=== PATIENT | female | born 1990 | race American Indian/Alaskan Native ===

== ENCOUNTER 2019-02-16 04:32 | Outpatient (CLI) | payer OTHER ==
[2019-02-16] MEDS ORDERED: LACTATED RINGERS 1,000 ML IV ONE (06:14)
[2019-02-16] MEDS ORDERED: OXYTOCIN 10 UNIT/1 ML INJ ONE (08:21)
== END 2019-02-16 07:50 | disposition home or self-care (01) ==
LOC: TRG 04:32
PROVIDERS: ATTEND Obstetrics & Gynecology
DX: O26.893 Other specified pregnancy related conditions, third trimester (principal); R10.9 Unspecified abdominal pain; M54.9 Dorsalgia, unspecified; O47.03 False labor before 37 completed weeks of gestation, third trimester; O13.3 Gestational [pregnancy-induced] hypertension without significant proteinuria, third trimester; Z3A.29 29 weeks gestation of pregnancy
CPT/HCPCS: 96360; J7120; J2590

== ENCOUNTER 2019-03-25 10:43 | Outpatient (CLI) | payer OTHER ==
[2019-03-25] MEDS ORDERED: LACTATED RINGERS 1,000 ML IV SCH (12:00)
[2019-03-25 12:23] LABS: Alanine Aminotransferase 10 units/L (7-56)
[2019-03-25 12:36] LABS: Hematocrit 31.5 % (30.3-42.9); Hemoglobin 10.4 gm/dl (10.1-14.3); Mean Corpuscular HGB Conc 33 % (30-34); Mean Corpuscular Volume 80 fl (79-97); Platelet Count 144 K/mm3 (140-440); Red Blood Count 3.95 M/mm3 (3.65-5.03)
[2019-03-25 12:53] LABS: Bilirubin,Urine Negative (Negative); Color,Urine Straw (Yellow)
[2019-03-25 12:54] LABS: Blood,Urine Negative (Negative); Protein,Urine <15 mg/dL mg/dL (Negative)
[2019-03-25] MEDS ORDERED: ONDANSETRON 4 MG/2 ML INJ IV SCH (13:04)
[2019-03-25] MEDS ORDERED: ACETAMINOPHEN 500 MG TAB ONE (13:15)
[2019-03-25] MEDS ORDERED: ACETAMINOPHEN 500 MG TAB PO SCH (13:20)
[2019-03-25 13:27] VITALS: BP 112/60
== END 2019-03-25 14:07 | disposition home or self-care (01) ==
LOC: TRG 10:43
PROVIDERS: ATTEND Obstetrics & Gynecology
DX: O21.2 Late vomiting of pregnancy (principal); O47.03 False labor before 37 completed weeks of gestation, third trimester; O26.893 Other specified pregnancy related conditions, third trimester; R51 Headache; O13.3 Gestational [pregnancy-induced] hypertension without significant proteinuria, third trimester; Z3A.35 35 weeks gestation of pregnancy; Z90.49 Acquired absence of other specified parts of digestive tract
CPT/HCPCS: 36415; 59025; 81001; 82565; 83615; 84450; 84460; 84550; 85027; 96361; 96365; J2405; J7120; 96360

== ENCOUNTER 2019-04-13 04:04 | Inpatient (IN) | payer OTHER ==
[2019-04-13] MEDS ORDERED: AMPICILLIN/NS 2 GM/100 ML 2 GM/100 ML BAG IV ONE (05:02)
[2019-04-13] MEDS ORDERED: TERBUTALINE 1 MG/1 ML INJ SUB-Q PRN (05:02)
[2019-04-13] MEDS ORDERED: fentaNYL 100 MCG/2 ML INJ IV PRN (05:02)
[2019-04-13] MEDS ORDERED: ePHEDrine SULFATE 50 MG/1 ML INJ IV PRN ×2 (05:02→16:01)
[2019-04-13] MEDS ORDERED: LIDOCAINE (2%) 20 MG/1 ML VIAL 20 ML MDV INFILTRATI ONE (05:02)
--- NOTE | 2019-04-13 05:17 | History and Physical Report ---
History of Present Illness Date of examination: 04/13/19 Date of admission: 04/13/19 04:32 Chief complaint: Contractions and leaking of water. History of present illness: 28 year old presents to L&D with complaint of contractions and leaking of water from vagina since about 9:00 PM last night. Patient denies vaginal bleeding. Patient reports fetus is moving actively. Patient states she receives care at [facility] but no records are available. Attempted to access records via computer but was unable to do so. LMP 03/21/18. EDC 04/29/2019 per patient report. 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 labs are not available. labs have been drawn upon admission. 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 denies: chlamydia, gonorrhea, hepatitis B, hepatitis C , HIV, syphilis, trichomonas Family/Genetic History: diabetes, hypertension, other (stroke, bipolar disorder, TIA) Social history: lives with family, full code. denies: smoking, alcohol abuse, prescription drug abuse, IV drug use - Obstetrical History Expected Date of Delivery: 04/29/19 Actual Gestation: 37 Week(s) 5 Day(s) : 4 Para: 2 Hx # Term Pregnancies: 1 Number of Pregnancies: 1 Spontaneous Abortions: 1 Induced : 0 Number of Living Children: 2 Medications and Allergies Allergies Allergy/AdvReac Type Severity Reaction Status Date / Time ziprasidone [From [place]] Allergy Severe Anaphylaxis Verified 03/25/19 11:13 Home Medications Medication Instructions Recorded Confirmed Last Taken Type ALPRAZolam [Xanax] 0.5 mg PO TID PRN 03/11/13 12/10/14 03/12/13 History Ibuprofen [Motrin 600 MG tab] 600 mg PO Q8H PRN #30 tablet 02/02/18 Unknown Rx Active Meds: Active Medications Ephedrine Sulfate (Ephedrine Sulfate) 10 mg IV Q2M PRN PRN Reason: Hypotension Fentanyl (Sublimaze) 100 mcg IV Q2H PRN PRN Reason: Labor Pain Oxytocin/Sodium Chloride (Pitocin/Ns 20 Unit/1000ml Drip) 20 units in 1,000 mls @ 125 mls/hr IV DIRECT TAYLOR Oxytocin/Sodium Chloride (Pitocin/Ns 30 Unit/500ml) 30 units in 500 mls @ 0 mls/hr IV TITR TAYLOR; Protocol Lactated Ringer's (Lactated Ringers) 1,000 mls @ 125 mls/hr IV DIRECT TAYLOR Ampicillin Sodium (Ampicillin/Ns 2 Gm/100 Ml) 2 gm in 100 mls @ 100 mls/hr IV ONCE ONE; Protocol Stop: 04/13/19 06:01 Ampicillin Sodium (Ampicillin/Ns 1 Gm/50 Ml) 1 gm in 50 mls @ 100 mls/hr IV Q4HR TAYLOR; Protocol Terbutaline Sulfate (Brethine) 0.25 mg SUB-Q ONCE PRN PRN Reason: Hyperstimulation/Hypertonicity Review of Systems All systems: negative (contractions and leaking of water from vagina) - Vital Signs Vital signs: Vital Signs Pulse BP 85 127/79 04/13/19 04:23 04/13/19 04:23 Temp Pulse Resp BP Pulse Ox 85 127/79 04/13/19 04:23 04/13/19 04:23 - Physical Exam Abdomen: Positive: normal appearance, soft. Negative: distention, tenderness, guarding, rigidity Genitourinary (Female): Positive: normal external genitalia, normal perenium. Negative: perineal/vulvar lesions (no lesions noted on careful exam with bright light upon admission) Vagina: Positive: other (clear fluid pooling from vagina; positive nitrazine) Uterus: Positive: enlarged. Negative: tender Anus/Rectum: Positive: normal perianal skin Extremities: Positive: normal. Negative: tenderness, edema - Obstetrical FHR: category 1 Uterine Contraction Monitor Mode: External Cervical Dilatation: 2.5 Cervical Effacement Percentage: 40 station: -4 Uterine Contraction Pattern: Irregular Uterine Contraction Intensity: Mild Results Result Diagrams: 04/13/19 04:53 All other labs normal. Assessment and Plan A: at 37 weeks, 5 days gestation. Spontaneous rupture of membranes. Early labor. GBS unknown. No records available. + HSV 2 serology. P: Admit. EFM. Request records. Draw labs. GBS prophylaxis. Pitocin augmentation of labor. Discussed with patient risks and benefits of Pitocin augmentation of labor. Patient consented to Pitocin augmentation of labor. Continue Valtrex suppression of HSV.
[2019-04-13 05:27] LABS: Hematocrit 35.2 % (30.3-42.9); Hemoglobin 11.8 gm/dl (10.1-14.3); Mean Corpuscular HGB Conc 33 % (30-34); Mean Corpuscular Volume 80 fl (79-97); Platelet Count 153 K/mm3 (140-440); Red Blood Count 4.42 M/mm3 (3.65-5.03); Red Cell Distribution Width 15.9 % (13.2-15.2)
[2019-04-13] MEDS: LACTATED RINGERS 1,000 ML IV SCH ×2 (05:27→21:10)
[2019-04-13] MEDS ORDERED: OXYTOCIN 20 UNIT/1000ML DRIP 20 UNITS/1,000 ML BAG IV SCH (06:00)
[2019-04-13] MEDS ORDERED: OXYTOCIN DRIP 30 UNITS/500 ML BAG IV SCH (06:00)
[2019-04-13] MEDS ORDERED: PETROLATUM,WHITE 30 GM OINT TP ONE (09:10)
[2019-04-13] MEDS: valACYclovir 500 MG TAB PO SCH ×3 (09:35→22:03)
[2019-04-13] MEDS: AMPICILLIN/NS 1 GM/50 ML 1 GM/50 ML BAG IV SCH ×4 (09:36→22:04)
[2019-04-13 11:10] LABS: Hepatitis C Virus Antibody Non-Reactive (NonReactive)
[2019-04-13] MEDS ORDERED: NALOXONE 2 MG/2 ML INJ IV PRN (16:01)
--- NOTE | 2019-04-13 16:04 | Anesthesia Consultation ---
Anesthesia Consult and Med Hx Date of service: 04/13/19 - Airway Anesthetic Teeth Evaluation: Poor ROM Head & Neck: Adequate Mental/Hyoid Distance: Adequate Mallampati Class: Class II Intubation Access Assessment: Probably Good - Pulmonary Exam CTA: Yes - Cardiac Exam Cardiac Exam: RRR - Pre-Operative Health Status ASA Pre-Surgery Classification: ASA3 Proposed Anesthetic Plan: Epidural - Pre-Anesthesia Comment Pre-Anesthesia Comments: PSH: CHOLECYSTECTOMY. NO ANESTHESIA COMPLACATIONS - Pulmonary Hx Smoking: No Hx Asthma: No Hx Respiratory Symptoms: No SOB: No COPD: No Home Oxygen Therapy: No Hx Pneumonia: No Hx Sleep Apnea: No - Cardiovascular System Hx Hypertension: No Hx Coronary Artery Disease: No Hx Heart Attack/AMI: No Hx Angina: No Hx Percutaneous Transluminal Coronary Angioplasty (PTCA): No Hx Cardia Arrhythmia: No Hx Pacemaker: No Hx Internal Defibrillator: No Hx Valvular Heart Disease: No Hx Heart Murmur: No Hx Peripheral Vascular Disease: No - Central Nervous System Hx Neuromuscular Disorder: No Hx Seizures: No CVA: No Hx Back Pain: Yes Hx Psychiatric Problems: No (BIPOLAR) - Gastrointestinal Hx Ulcer: No Hx Gastroesophageal Reflux Disease: No - Endocrine Hx Renal Disease: No Hx End Stage Renal Disease: No Hx Cirrhosis: No Hx Liver Disease: No Hx Insulin Dependent Diabetes: No Hx Non-Insulin Dependent Diabetes: No Hx Thyroid Disease: No Hx Hypothyroidism: No Hx Hyperthyroidism: No - Hematic Hx Anemia: Yes Hx Sickle Cell Disease: Yes (sickle cell trait) - Other Systems Hx Alcohol Use: No Hx Substance Use: No Hx Cancer: No Hx Obesity: Yes
[2019-04-13] MEDS ORDERED: DEXMEDETOMIDINE 200 MCG/2 ML VIAL IV ONE (16:45)
[2019-04-13] MEDS: fentaNYL-BUPIV 2 MCG/ML-0.125% 200 MCG/100 ML BAG EPIDURAL SCH (20:20)
[2019-04-14] MEDS: AMPICILLIN/NS 1 GM/50 ML 1 GM/50 ML BAG IV SCH ×2 (02:00→06:00)
[2019-04-14] MEDS: fentaNYL-BUPIV 2 MCG/ML-0.125% 200 MCG/100 ML BAG EPIDURAL SCH (03:02)
[2019-04-14] MEDS ORDERED: DEXMEDETOMIDINE 200 MCG/2 ML VIAL IV ONE (05:58)
[2019-04-14] MEDS ORDERED: BUPIVACAINE/PF (0.25%) 2.5 MG/ML 10 ML VIAL INFILTRATI ONE (05:59)
--- NOTE | 2019-04-14 07:20 | Procedure Note ---
OB Delivery Note - Delivery Date of Delivery: 04/14/19 Surgeon: ANA AUSTIN Estimated blood loss: 200cc - Vaginal Delivery presentation: vertex Delivery position: OA Intrapartum events: none Delivery induction: none Delivery augmentation: pitocin Delivery monitor: external FHT, external uterine Route of delivery: Delivery placenta: spontaneous Delivery cord: 3 umbilical vessels Episiotomy: none Delivery laceration: none Anesthesia: epidural Delivery comments: Spontaneous vaginal delivery at 06:56 of liveborn female weighing 5 lb. 14 oz. over intact perineum with apgars of 8/9. Epidural anesthesia. Spontaneous cry and respirations. 3 vessel cord double clamped and cut. Baby taken to radiant warmer for suctioning and further evaluation. Spontaneous delivery of intact placenta and membranes by messina mechanism. EBL 200 cc. Pitocin to IV fluids after delivery of placenta. Fundus firm and midline. No lacerations noted. Vaginal sweep negative. Sponge and instrument counts correct. Mother and baby stable in birthing room.
[2019-04-14] MEDS ORDERED: LANOLIN/ZINC/DIMETHICONE (LANSINOH) 7 GM TP PRN (08:00)
[2019-04-14] MEDS ORDERED: ACETAMINOPHEN 325 MG TAB PO PRN (08:00)
[2019-04-14] MEDS ORDERED: WITCH HAZEL/ GLYCERIN PAD TP PRN (08:00)
[2019-04-14] MEDS ORDERED: ONDANSETRON 4 MG/2 ML INJ ONE (08:19)
[2019-04-14] MEDS: IBUPROFEN 600 MG TAB PO SCH ×2 (08:57→18:36)
[2019-04-14] MEDS ORDERED: ONDANSETRON 4 MG/2 ML INJ IV ONE (09:00)
--- NOTE | 2019-04-14 17:12 | Post Anesthesia Evaluation ---
- Post Anesthesia Evaluation Patient Participated: Yes Airway Patent: Yes Stable Respiratory Function: Yes Nausea/Vomiting: No Temp > 96.8F: Yes Pain Manageable: Yes Adequeate Hydration: Yes Anesthesia Complications: No Block Receding Appropriately: Yes Patient on Ventilator: No
[2019-04-14 20:13] LABS: Hematocrit 30.2 % (30.3-42.9); Hemoglobin 9.9 gm/dl (10.1-14.3)
[2019-04-14] MEDS ORDERED: MAGNESIUM HYDROXIDE (MOM) ORAL LIQD UDC PO PRN (22:00)
[2019-04-14] MEDS: DOCUSATE SODIUM 100 MG CAP PO SCH (22:05)
[2019-04-14] MEDS: FERROUS SULFATE 325 MG TAB PO SCH (22:05)
[2019-04-15] MEDS: IBUPROFEN 600 MG TAB PO SCH ×3 (02:59→11:28)
[2019-04-15] MEDS ORDERED: TETANUS,DIPH,PERTUSS(ACELL) VACCINE 0.5 ML SYRINGE IM ONE (06:00)
[2019-04-15] MEDS ORDERED: FLU VACC QUAD 2019-20 (3 YR UP)/PF 60 MCG/0.5 ML SYRINGE IM ONE (06:00)
[2019-04-15] MEDS: DOCUSATE SODIUM 100 MG CAP PO SCH (09:19)
[2019-04-15] MEDS: FERROUS SULFATE 325 MG TAB PO SCH (09:20)
--- NOTE | 2019-04-15 11:18 | Progress Note ---
Assessment and Plan - Patient Problems (1) Status post normal vaginal delivery Current Visit: Yes Status: Acute Plan to address problem: Continue routine PP orders D/C later today if infant ok'd for d/c F/U at office in 6 wks for routine PP visit (2) Anemia Current Visit: Yes Status: Acute Qualifiers: Anemia type: other cause Other causes of anemia: acute posthemorrhagic Qualified Code(s): D62 - Acute posthemorrhagic anemia Plan to address problem: Asymptomatic Continue daily oral iron supplementation as directed with OJ Increase iron rich foods into diet Subjective - Subjective Date of service: 04/15/19 Principal diagnosis: S/P ; PPD#1 Interval history: See admission H & P; OB delivery summary and PP progress note Patient reports: appetite normal, voiding normally, pain well controlled, flatus, ambulating normally [place]: doing well () Objective - Vital Signs Latest vital signs: Vital Signs Temp Pulse Resp BP BP Pulse Ox 04/15/19 07:45 98.5 F 89 20 119/78 100 04/15/19 00:19 97.9 F 92 H 18 129/79 99 04/14/19 16:40 97.6 F 89 18 119/70 99 04/14/19 12:40 97.9 F 83 18 111/59 99 Intake and Output 04/14/19 04/15/19 04/15/19 23:59 07:59 15:59 Intake Total 480 480 Balance 480 480 Intake: Oral 240 Intake, Free Water 240 480 Other: Total, Intake Amount 240 # Voids Void 1 2 # Bowel Movements 0 - Exam Breasts: Present: normal Cardiovascular: Present: Regular rate Lungs: Present: Normal air movement Abdomen: Present: soft Uterus: Present: firm, fundal height below umbilicus (U-1) Extremities: Present: normal Deep Tendon Reflex Grade: Normal +2 - Labs Labs: Abnormal lab results 04/14/19 Range/Units 19:53 Hgb 9.9 L (10.1-14.3) gm/dl Hct 30.2 L (30.3-42.9) %
--- NOTE | 2019-04-15 11:20 | Discharge Summary ---
Providers - Providers Date of Admission: 04/13/19 04:32 Date of discharge: 04/15/19 (1600) Attending physician: SANDY MCKINLEY MD Primary care physician: SANDY MCKINLEY MD Hospitalization Reason for admission: active labor Delivery: Episiotomy: none Laceration: none Other procedures: none complications: other (anemia) Discharge diagnosis: IUP at term delivered, other (anemia) Maynard baby: female Hospital course: See admission H & P; OB delivery summary and PP progress note Condition at discharge: Stable Disposition: DC-01 TO HOME OR SELFCARE - Discharge Diagnoses (1) Status post normal vaginal delivery Status: Acute (2) Anemia Status: Acute Qualifiers: Anemia type: other cause Other causes of anemia: acute posthemorrhagic Qualified Code(s): D62 - Acute posthemorrhagic anemia Plan - Discharge Medications Prescriptions: Ferrous Sulfate [Feosol 325 MG tab] 325 mg PO BID 30 Days #60 tablet - Provider Discharge Summary Activity: routine, no sex for 6 weeks, no heavy lifting 4 weeks, no strenuous exercise Diet: other (Iron rich diet) Instructions: routine Additional instructions: [] Smoking cessation referral if applicable(refer to patient education folder for contact #) [] Refer to [facility] Booklet Call your doctor immediately for: * Fever > 100.5 * Heavy vaginal bleeding ( >1 pad per hour) * Severe persistent headache * Shortness of breath * Reddened, hot, painful area to leg or breast - Follow up plan Follow up: SANDY MCKINLEY MD [Primary Care Provider] - 6 Weeks
[2019-04-15 14:57] VITALS: BP 120/81
== END 2019-04-15 14:40 | disposition home or self-care (01) | DRG 806 ==
LOC: TRG 04:04 → LD 04:32 → OB 04-14 10:15
PROVIDERS: ADMIT Obstetrics & Gynecology; ATTEND Obstetrics & Gynecology
PROC: 10E0XZZ Delivery of Products of Conception, External Approach (ICD-10-PCS; principal; 2019-04-14)
PROC: 3E0R3BZ Introduction of Anesthetic Agent into Spinal Canal, Percutaneous Approach (ICD-10-PCS; 2019-04-14)
PROC: 00HU33Z Insertion of Infusion Device into Spinal Canal, Percutaneous Approach (ICD-10-PCS; 2019-04-14)
PROC: 3E0234Z Introduction of Serum, Toxoid and Vaccine into Muscle, Percutaneous Approach (ICD-10-PCS; 2019-04-15)
DX: O99.214 Obesity complicating childbirth (principal); O98.52 Other viral diseases complicating childbirth; Z37.0 Single live birth; D62 Acute posthemorrhagic anemia; F31.9 Bipolar disorder, unspecified; E66.9 Obesity, unspecified; B00.9 Herpesviral infection, unspecified; O99.02 Anemia complicating childbirth; O99.344 Other mental disorders complicating childbirth; Z3A.37 37 weeks gestation of pregnancy; Z23 Encounter for immunization; Z83.3 Family history of diabetes mellitus; Z82.49 Family history of ischemic heart disease and other diseases of the circulatory system; Z82.3 Family history of stroke; Z81.8 Family history of other mental and behavioral disorders; Z90.49 Acquired absence of other specified parts of digestive tract; Z88.8 Allergy status to other drugs, medicaments and biological substances
CPT/HCPCS: 36415; 83036; 85014; 85018; 85027; 86592; 86706; 86762; 86803; 86850; 86900; 86901; 87806; 88307; 90471; 90686; 90715; G0378; A6250; J0290; J2405; J2590; J3010; J3490; J7120

== ENCOUNTER 2019-07-16 01:24 | Emergency (ER) | payer OTHER ==
[2019-07-16 04:07] LABS: Bacteria,Urine 4+ /HPF (Negative); Bilirubin,Urine NEG (Negative); Blood,Urine NEG (Negative); Color,Urine Yellow (Yellow); Protein,Urine <15 mg/dL mg/dL (Negative); Urobilinogen,Urine < 2.0 mg/dL (<2.0)
[2019-07-16 13:45] VITALS: BP 143/102
== END 2019-07-16 02:25 | disposition left against medical advice (07) ==
LOC: ED 01:24
DX: F60.0 Paranoid personality disorder (principal); Z53.21 Procedure and treatment not carried out due to patient leaving prior to being seen by health care provider
CPT/HCPCS: 81001

== ENCOUNTER 2019-07-18 07:04 | Emergency (ER) | payer OTHER ==
[2019-07-18] MEDS ORDERED: ZIPRASIDONE MESYLATE 20 MG VIAL IM ONE ×2 (07:07→12:15)
[2019-07-18] MEDS ORDERED: diphenhydrAMINE 50 MG/ML VIAL IM ONE ×2 (07:09→12:18)
[2019-07-18] MEDS ORDERED: ALUM-MAG HYDROXIDE-SIMETHICONE 200-200-20MG/5ML ORAL LIQD 30 ML PO PRN (07:17)
[2019-07-18] MEDS ORDERED: MAGNESIUM HYDROXIDE (MOM) ORAL LIQD UDC PO PRN (07:17)
[2019-07-18] MEDS ORDERED: ACETAMINOPHEN 325 MG TAB PO PRN (07:17)
--- NOTE | 2019-07-18 07:17 | Emergency Department Report ---
ED Psych HPI - General Stated Complaint: MH EVAL Time Seen by Provider: 07/18/19 07:06 Source: patient, police, EMS, old records reviewed Mode of arrival: Stretcher - History of Present Illness Initial Comments: Luca is a 28 yo female with hx of bipolar affective disorder who presents with abnormal erratic behavior with police escort. She was walking into oncoming traffic. She was jumping in front of cars on [address]. She threw her telephone toward the police officers. Patient is currently agitated. She states, "They killed my brother. I am the daughter of Blank. You are a b----." Patient was detained with a taser per police. After hearing the verbal order for Geodon, she states, "I am allergic to Geodon." Due to agitation and erratic behavior, patient is handcuffed to stretcher. Further history obtained from family member: Patient is followed at [facility] mental health care. Patient's mother has a history of mental health disorder. No history of drug use according to family member. She is with 3 children. Youngest child 3 months old. 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 Complaint: altered mental status -: unknown Associated Psychiatric Symptoms: racing thoughts, delusions Quality: constant Context: other (unknown) Treatments Prior to Arrival: physical restraints - Related Data Home Medications Medication Instructions Recorded Confirmed Last Taken ALPRAZolam [Xanax] 0.5 mg PO TID PRN 03/11/13 04/14/19 03/12/13 Previous Rx's Medication Instructions Recorded Last Taken Type Ibuprofen [Motrin 600 MG tab] 600 mg PO Q8H PRN #30 tablet 02/02/18 Unknown Rx Ferrous Sulfate [Feosol 325 MG tab] 325 mg PO BID 30 Days #60 tablet 04/15/19 Unknown Rx Allergies Allergy/AdvReac Type Severity Reaction Status Date / Time ziprasidone [From Geodon] Allergy Severe Anaphylaxis Verified 03/25/19 11:13 ED Review of Systems ROS: Stated complaint: MH EVAL Other details as noted in HPI Comment: Unobtainable due to pts medical conditions (patient will not cooperate with history taking) ED Past Medical Hx - Past Medical History Hx Hypertension: No Hx Heart Attack/AMI: No Hx Congestive Heart Failure: No Hx Diabetes: No Hx Deep Vein Thrombosis: No Hx Liver Disease: No Hx Renal Disease: No Hx Sickle Cell Disease: Yes (sickle cell trait) Hx Seizures: No Hx Psychiatric Treatment: Yes (bipolar disorder, schizo, PTSD) Hx Asthma: No Hx COPD: No Hx HIV: No - Surgical History Hx Pacemaker: No Hx Internal Defibrillator: No Hx Cholecystectomy: Yes - Social History Smoking Status: Never Smoker Substance Use Type: None - Medications Home Medications: Home Medications Medication Instructions Recorded Confirmed Last Taken Type ALPRAZolam [Xanax] 0.5 mg PO TID PRN 03/11/13 04/14/19 03/12/13 History Ibuprofen [Motrin 600 MG tab] 600 mg PO Q8H PRN #30 tablet 02/02/18 04/14/19 Unknown Rx Ferrous Sulfate [Feosol 325 MG tab] 325 mg PO BID 30 Days #60 tablet 04/15/19 Unknown Rx ED Physical Exam - General General appearance: alert, in no apparent distress - Head Head exam: Present: atraumatic, normocephalic - Eye Eye exam: Present: normal appearance - ENT ENT exam: Present: mucous membranes moist - Neck Neck exam: Present: normal inspection, full ROM - Respiratory Respiratory exam: Present: normal lung sounds bilaterally. Absent: respiratory distress, wheezes, rales, rhonchi - Cardiovascular Cardiovascular Exam: Present: regular rate, normal rhythm, normal heart sounds. Absent: systolic murmur, diastolic murmur, rubs, gallop - GI/Abdominal GI/Abdominal exam: Present: soft, normal bowel sounds. Absent: distended, tenderness, guarding, rebound - Extremities Exam Extremities exam: Present: normal inspection - Back Exam Back exam: Present: normal inspection - Neurological Exam Neurological exam: Present: alert, oriented X3 - Psychiatric Psychiatric exam: Present: agitated, other (delusional) - Skin Skin exam: Present: warm, dry, intact, normal color. Absent: rash ED Course Vital Signs 07/18/19 07/18/19 07/18/19 07:57 08:03 14:42 Temperature 98.8 F Pulse Rate 100 H 86 109 H Respiratory 16 16 20 Rate Blood Pressure 149/97 112/92 134/88 [Right] O2 Sat by Pulse 98 98 98 Oximetry 07/18/19 14:59 Temperature 98.4 F Pulse Rate 106 H Respiratory 18 Rate Blood Pressure 134/88 [Right] O2 Sat by Pulse 100 Oximetry - Reevaluation(s) Reevaluation #1: 07/18/19 07:43 I reexamined patient. She is in four-point soft wrist restraints. She is maintaining airway. She is more calm. Still Slightly agitated. No respiratory distress. No respiratory depression. No urticaria. Reevaluation #2: 07/18/19 08:00 I reassessed Ms. James. She is maintaining airway. Normal vital signs. Oxygen saturation on room air 99%. No respiratory distress. No urticaria. Reevaluation #3: 07/18/19 12:19 Patient became agitated after verbal verbal encounter with another patient. She threatened to harm him and others. She required physical and chemical restraint. She received Haldol 10 mg IM injection as well as IM Benadryl. ED Medical Decision Making - Lab Data Result diagrams: 07/18/19 07:33 07/18/19 07:33 Laboratory Results - last 24 hr 07/18/19 07/18/19 07/18/19 07:33 07:33 07:33 WBC 6.6 RBC 4.26 Hgb 12.0 Hct 35.3 MCV 83 MCH 28 MCHC 34 RDW 15.7 H Plt Count 204 Lymph % (Auto) 18.4 [place] % (Auto) 5.0 Eos % (Auto) 0.2 Baso % (Auto) 0.5 Lymph # 1.2 [place] # 0.3 Eos # 0.0 Baso # 0.0 Seg Neutrophils % 75.9 H Seg Neutrophils # 5.0 Sodium 142 Potassium 3.5 L Chloride 103.9 Carbon Dioxide 21 L Anion Gap 21 BUN 11 Creatinine 0.8 Estimated GFR > 60 BUN/Creatinine Ratio 14 Glucose 177 H Calcium 9.5 Total Bilirubin 0.40 AST 34 ALT 47 Alkaline Phosphatase 82 Total Protein 8.0 Albumin 4.8 Albumin/Globulin Ratio 1.5 HCG, Qual Salicylates < 0.3 L Acetaminophen Plasma/Serum Alcohol 07/18/19 07/18/19 07/18/19 07:33 07:33 07:33 WBC RBC Hgb Hct MCV MCH MCHC RDW Plt Count Lymph % (Auto) [place] % (Auto) Eos % (Auto) Baso % (Auto) Lymph # [place] # Eos # Baso # Seg Neutrophils % Seg Neutrophils # Sodium Potassium Chloride Carbon Dioxide Anion Gap BUN Creatinine Estimated GFR BUN/Creatinine Ratio Glucose Calcium Total Bilirubin AST ALT Alkaline Phosphatase Total Protein Albumin Albumin/Globulin Ratio HCG, Qual Negative Salicylates Acetaminophen < 5.0 L Plasma/Serum Alcohol < 0.01 - Medical Decision Making According to EMR, Ms. James had hx of schizophrenia, bipolar disorder and PTSD. She presents with acute agitation, erratic behavior, delusional thought pattern. Suicidal behavior exhibited by jumping in front of traffic. She is medically clear for psychiatric care. She required chemical restraint urgently upon arrival. Geodon/Ziprasidone allergy seen after I ordered sedation. She was given benadryl IM immediately after Geodon administration. Placed on personnel monitor and pulse oximetry. Patient is medically clear for psychiatric care. She has been transferred to [facility]. Critical Care Time: Yes Critical care time in (mins) excluding proc time.: 40 Critical care attestation.: If time is entered above; I have spent that time in minutes in the direct care of this critically ill patient, excluding procedure time. 40 minutes of critical care time excluding procedures were used in the care of the patient. I reviewed electronic record. I discussed treatment plan with the nursing team members at the bedside. I came immediately to the bedside upon patient's arrival.. I obtained history from police officers at the bedside. I kept family member informed. Patient required multiple interventions and reassessments. I was concerned for patient's acute agitation potentially causing harm to herself and staff members. I was concerned for potential respiratory respiratory depression with chemical sedation. ED Disposition Clinical Impression: Acute psychosis, Bipolar disorder Disposition: DC/TX-65 PSY HOSP/PSY UNIT Is pt being admited?: No Does the pt Need Aspirin: No Condition: Stable
[2019-07-18 07:50] LABS: Basophils % (Auto) 0.5 % (0.0-1.8); Eosinophils % (Auto) 0.2 % (0.0-4.3); Hematocrit 35.3 % (30.3-42.9); Lymphocytes # (Auto) 1.2 K/mm3 (1.2-5.4); Lymphocytes % (Auto) 18.4 % (13.4-35.0); Mean Corpuscular HGB Conc 34 % (30-34); Mean Corpuscular Volume 83 fl (79-97); Monocytes # (Auto) 0.3 K/mm3 (0.0-0.8); Platelet Count 204 K/mm3 (140-440); Red Blood Count 4.26 M/mm3 (3.65-5.03); Red Cell Distribution Width 15.7 % (13.2-15.2)
[2019-07-18 08:02] LABS: Alanine Aminotransferase 47 units/L (7-56); Albumin 4.8 g/dL (3.9-5); BUN/Creatinine Ratio 14; Blood Urea Nitrogen 11 mg/dL (7-17); Calcium 9.5 mg/dL (8.4-10.2); Hemolysis Index 0
[2019-07-18] MEDS ORDERED: diphenhydrAMINE 50 MG/ML VIAL ONE (12:13)
[2019-07-18] MEDS ORDERED: HALOPERIDOL LACTATE 5 MG/1 ML INJ ONE (12:13)
[2019-07-18] MEDS ORDERED: diphenhydrAMINE 50 MG/ML VIAL IV ONE (12:16)
[2019-07-18] MEDS ORDERED: HALOPERIDOL LACTATE 5 MG/1 ML INJ IM ONE (12:17)
[2019-07-18 12:28] LABS: Bacteria,Urine 4+ /HPF (Negative); Bilirubin,Urine NEG (Negative); Blood,Urine NEG (Negative); Color,Urine Yellow (Yellow); Mucus,Urine FEW /HPF; Protein,Urine <15 mg/dL mg/dL (Negative); Urobilinogen,Urine < 2.0 mg/dL (<2.0)
[2019-07-18 12:36] LABS: Amphetamine Screen,Urine PRESUMPTIVE NEGATIVE; Benzodiazepines Screen,Urine PRESUMPTIVE NEGATIVE; Cannabinoid Screen,Urine PRESUMPTIVE NEGATIVE; Cocaine Screen,Urine PRESUMPTIVE NEGATIVE; Methadone Screen,Urine PRESUMPTIVE NEGATIVE; Opiate Screen,Urine PRESUMPTIVE NEGATIVE
[2019-07-18 14:43] VITALS: BP 134/88
== END 2019-07-18 15:24 ==
LOC: EEVIPCON 07:04 → ED 07:04
DX: F23 Brief psychotic disorder (principal); F31.9 Bipolar disorder, unspecified; F20.89 Other schizophrenia; F43.10 Post-traumatic stress disorder, unspecified; D57.3 Sickle-cell trait; Z88.6 Allergy status to analgesic agent
CPT/HCPCS: 36415; 80053; 80307; 81001; 84703; 85025; 96372; 99285; J1200; J1630; J3486; 80320; G0480

== ENCOUNTER 2019-09-05 03:56 | Emergency (ER) | payer SELFPAY ==
[2019-09-05 04:04] VITALS: BP 143/81
== END 2019-09-05 04:00 | disposition left against medical advice (07) ==
LOC: ED 03:56
DX: F32.89 Other specified depressive episodes (principal); Z53.21 Procedure and treatment not carried out due to patient leaving prior to being seen by health care provider

== ENCOUNTER 2021-08-22 09:37 | Emergency (ER) | payer OTHER ==
[2021-08-22] MEDS ORDERED: SODIUM CHLORIDE 0.9% 1000 ML 1,000 ML IV ONE (11:17)
[2021-08-22 14:07] LABS: Bilirubin,Urine NEG (Negative); Blood,Urine LG (Negative); Color,Urine Yellow (Yellow); Protein,Urine <15 mg/dL mg/dL (Negative); Urobilinogen,Urine < 2.0 mg/dL (<2.0)
[2021-08-22 14:12] LABS: Mucus,Urine FEW /HPF
[2021-08-22 14:14] LABS: HCG Qualitative,Urine Negative (Negative)
[2021-08-22 15:09] LABS: Basophils % (Auto) 0.3 % (0.0-1.8); Eosinophils # (Auto) 0.1 K/mm3 (0.0-0.4); Eosinophils % (Auto) 1.5 % (0.0-4.3); Hematocrit 29.9 % (30.3-42.9); Hemoglobin 9.4 gm/dl (10.1-14.3); Lymphocytes # (Auto) 1.4 K/mm3 (1.2-5.4); Lymphocytes % (Auto) 20.6 % (13.4-35.0); Mean Corpuscular HGB Conc 31 % (30-34); Mean Corpuscular Volume 71 fl (79-97); Monocytes # (Auto) 0.5 K/mm3 (0.0-0.8); Monocytes % (Auto) 7.1 % (0.0-7.3); Platelet Count 255 K/mm3 (140-440); Red Blood Count 4.21 M/mm3 (3.65-5.03); Red Cell Distribution Width 18.1 % (13.2-15.2)
--- NOTE | 2021-08-22 15:33 | Emergency Department Report ---
ED General Adult HPI - General Chief complaint: Overdose Stated complaint: BUPROPION TAKING 20 OR MORE 08/21/21 Time Seen by Provider: 08/22/21 15:14 Source: patient Mode of arrival: Ambulatory Limitations: No Limitations - History of Present Illness Initial comments: 30 year old female came in today with concern of suicidal attempt. Patient states she took about 20 tablets of wellbutrin yesterday in an attempt to end life. States in the past, her methods is always overdose and never cut or any firearm. States she is under a lot of stress as she has to support the entire family. During our conversation, patient was tearful. Denies homicidal pierre ation or hallucination. - Related Data Home Medications Medication Instructions Recorded Confirmed Last Taken OLANZapine [Olanzapine] 10 mg PO QHS 08/22/21 08/22/21 Unknown OXcarbazepine [Trileptal] 150 mg PO DAILY 08/22/21 08/22/21 Unknown buPROPion HCL [Bupropion HCl Sr] 100 mg PO DAILY 08/22/21 08/22/21 Unknown Allergies Allergy/AdvReac Type Severity Reaction Status Date / Time ziprasidone [From Geodon] Allergy Severe Anaphylaxis Verified 03/25/19 11:13 ED Review of Systems ROS: Stated complaint: BUPROPION TAKING 20 OR MORE 08/21/21 Other details as noted in HPI Comment: All other systems reviewed and negative Constitutional: no symptoms reported, see HPI Eyes: as per HPI ENT: as per HPI Respiratory: no symptoms reported, see HPI Cardiovascular: as per HPI Endocrine: no symptoms reported Gastrointestinal: as per HPI Genitourinary: as per HPI Musculoskeletal: as per HPI Skin: as per HPI Neurological: as per HPI Psychiatric: depression, suicidal thoughts. denies: auditory hallucinations, visual hallucinations, homicidal thoughts Hematological/Lymphatic: as per HPI ED Past Medical Hx - Past Medical History Previous Medical History?: Yes Hx Hypertension: No Hx Heart Attack/AMI: No Hx Congestive Heart Failure: No Hx Diabetes: No Hx Deep Vein Thrombosis: No Hx Liver Disease: No Hx Renal Disease: No Hx Sickle Cell Disease: Yes (sickle cell trait) Hx Seizures: No Hx Psychiatric Treatment: Yes (bipolar disorder, schizo, PTSD, depression) Hx Asthma: No Hx COPD: No Hx HIV: No - Surgical History Hx Pacemaker: No Hx Internal Defibrillator: No Hx Cholecystectomy: Yes - Social History Smoking Status: Never Smoker - Medications Home Medications: Home Medications Medication Instructions Recorded Confirmed Last Taken Type OLANZapine [Olanzapine] 10 mg PO QHS 08/22/21 08/22/21 Unknown History OXcarbazepine [Trileptal] 150 mg PO DAILY 08/22/21 08/22/21 Unknown History buPROPion HCL [Bupropion HCl Sr] 100 mg PO DAILY 08/22/21 08/22/21 Unknown History ED Physical Exam - General Limitations: No Limitations General appearance: alert, in no apparent distress - Head Head exam: Present: atraumatic, normocephalic, normal inspection - Eye Eye exam: Present: normal appearance, PERRL, EOMI Pupils: Present: normal accommodation - ENT ENT exam: Present: normal exam, mucous membranes moist - Neck Neck exam: Present: normal inspection, full ROM - Respiratory Respiratory exam: Present: normal lung sounds bilaterally - Cardiovascular Cardiovascular Exam: Present: regular rate, normal rhythm, normal heart sounds - GI/Abdominal GI/Abdominal exam: Present: soft - Extremities Exam Extremities exam: Present: normal inspection, full ROM, normal capillary refill - Back Exam Back exam: Present: normal inspection, full ROM - Neurological Exam Neurological exam: Present: alert, oriented X3, CN II-XII intact - Psychiatric Psychiatric exam: Present: depressed, suicidal ideation. Absent: homicidal id eation - Skin Skin exam: Present: normal color ED Course Vital Signs 08/22/21 08/22/21 09:48 12:34 Temperature 98.9 F Pulse Rate 94 H Respiratory 14 Rate Blood Pressure 122/89 O2 Sat by Pulse 99 99 Oximetry ED Medical Decision Making - Lab Data Result diagrams: 08/22/21 14:36 08/22/21 14:36 Critical care attestation.: If time is entered above; I have spent that time in minutes in the direct care of this critically ill patient, excluding procedure time. ED Disposition Clinical Impression: Urinary tract infection, Suicidal behavior with attempted self-injury Condition: Stable Referrals: AZUL MAHER MD [Primary Care Provider] - 3-5 Days
[2021-08-22 15:43] LABS: Alanine Aminotransferase 9 units/L (7-56); Albumin 4.4 g/dL (3.9-5); Blood Urea Nitrogen 5 mg/dL (7-17); Calcium 9.5 mg/dL (8.4-10.2); Hemolysis Index 4
[2021-08-22 15:47] LABS: BUN/Creatinine Ratio 8
[2021-08-22 19:46] LABS: Amphetamine Screen,Urine PRESUMPTIVE NEGATIVE; Benzodiazepines Screen,Urine PRESUMPTIVE NEGATIVE; Cannabinoid Screen,Urine PRESUMPTIVE NEGATIVE; Cocaine Screen,Urine PRESUMPTIVE NEGATIVE; Methadone Screen,Urine PRESUMPTIVE NEGATIVE; Opiate Screen,Urine PRESUMPTIVE NEGATIVE
[2021-08-22 20:07] VITALS: BP 102/57
[2021-08-22] MEDS ORDERED: SULFAMETHOXAZOLE/TRIMETHOPRIM 800/160MG DS TAB PO SCH (22:00)
--- NOTE | 2021-08-23 18:51 | Electrocardiograph Report ---
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
== END 2021-08-23 02:24 ==
LOC: ED 09:37
DX: R45.851 Suicidal ideations (principal); N39.0 Urinary tract infection, site not specified; D57.1 Sickle-cell disease without crisis; F32.A Depression, unspecified; Z90.49 Acquired absence of other specified parts of digestive tract; Z91.09 Other allergy status, other than to drugs and biological substances; Z79.899 Other long term (current) drug therapy
CPT/HCPCS: 36415; 80053; 80307; 80320; 81001; 81025; 84443; 85025; 87076; 87086; 87186; 93005; 99284; G0480